=== PATIENT | female | born 1945 | race Caucasian/White ===

== ENCOUNTER 2018-10-10 15:28 | Emergency (ER) | payer MEDICARE ==
[2018-10-10 16:20] LABS: Urine Appearance Turbid; Urine Bacteria Absent (Absent); Urine Bilirubin Negative (Negative); Urine Blood 2+ (Negative); Urine Glucose Negative (Negative); Urine Ketones Negative (Negative); Urine Nitrite Negative (Negative); Urine Protein 2+(100 mg/dL) (Negative); Urine Specific Gravity 1.012 (1.010-1.030); Urine Urobilinogen Negative (Negative)
[2018-10-10 16:37] LABS: Urine Color Red
[2018-10-10 16:39] LABS: Urine Red Blood Cell 3+(>10/hpf) (Absent)
[2018-10-10 16:40] LABS: Urine Squamous Epithelial Cell Present (Absent); Urine White Blood Cell Trace(0-5/hpf) (Absent)
--- NOTE | 2018-10-10 17:03 | ED ---
GI/ HPI - HPI Summary HPI Summary: Patient is a 73-year-old female presenting to the ED with painless gross hematuria since last evening. She states she has been in the ED, symptoms have worsened. She is gone to the restroom for hematuria and frequency 5 times in the past hour and a half. She denies any pain, however is endorsing frequency. Denies any urgency. She states the blood is currently coming out in clots. Patient is a smoker. She denies any other symptoms. She denies history of UTIs. She denies any back pain, fevers, sweats, chills. Patient appears otherwise well on arrival. Vital signs are stable. - History of Current Complaint Chief Complaint: EDUrogenitalProblems Time Seen by Provider: 10/10/18 15:55 Stated Complaint: BLOOD IN URINE PER PT Hx Obtained From: Patient Onset/Duration: Started Hours Ago Timing: Constant Severity: Mild Current Severity: Mild Pain Intensity: 0 Associated Signs and Symptoms: Positive: Other: - Gross hematuria - Allergy/Home Medications Allergies/Adverse Reactions: Allergies Allergy/AdvReac Type Severity Reaction Status Date / Time No Known Allergies Allergy Verified 10/10/18 15:44 PMH/Surg Hx/FS Hx/Imm Hx Previously Healthy: Yes Endocrine/Hematology History: Denies: Hx Diabetes Cardiovascular History: Denies: Hx Congestive Heart Failure, Hx Hypertension History: Denies: Hx Renal Disease - Surgical History Surgery Procedure, Year, and Place: tonsils. foot surgery - Immunization History Date of Tetanus Vaccine: Unk Date of Influenza Vaccine: None Hx Pertussis Vaccination: No Immunizations Up to Date: Yes Infectious Disease History: No Infectious Disease History: Denies: Traveled Outside the [place] in Last 30 Days - Social History Occupation: Unemployed Lives: With Family Alcohol Use: Weekly Alcohol Amount: 2 beers 3x week Hx Substance Use: No Substance Use Type: Reports: None Hx Tobacco Use: Yes Smoking Status (MU): Heavy Every Day Tobacco Smoker Review of Systems Constitutional: Negative Negative: Fever, Chills, Skin Diaphoresis Negative: Palpitations, Chest Pain Negative: Shortness Of Breath, Cough Negative: Abdominal Pain, Vomiting, Diarrhea, Nausea Positive: frequency, hematuria Negative: Arthralgia, Myalgia Psychological: Normal All Other Systems Reviewed And Are Negative: Yes Physical Exam Triage Information Reviewed: Yes Vital Signs On Initial Exam: Initial Vitals Temp Pulse Resp BP Pulse Ox 97.0 F 84 18 176/89 99 10/10/18 15:36 10/10/18 15:36 10/10/18 15:36 10/10/18 15:36 10/10/18 15:36 Vital Signs Reviewed: Yes Appearance: Positive: Well-Appearing Skin: Positive: Warm, Skin Color Reflects Adequate Perfusion Head/Face: Positive: Normal Head/Face Inspection Eyes: Positive: EOMI, CYNTHIA, Conjunctiva Clear Neck: Positive: Supple, No Lymphadenopathy Respiratory/Lung Sounds: Positive: Clear to Auscultation, Breath Sounds Present Cardiovascular: Positive: RRR, Pulses are Symmetrical in both Upper and Lower Extremities Bowel Sounds: Positive: Present Musculoskeletal: Positive: Normal, Strength/ROM Intact Psychiatric: Positive: Affect/Mood Appropriate Diagnostics - Vital Signs Vital Signs Temp Pulse Resp BP Pulse Ox 10/10/18 15:36 97.0 F 84 18 176/89 99 - Laboratory Lab Results: Lab Results 10/10/18 Range/Units 16:07 Urine Color Red A Urine Appearance Turbid Urine pH 6.0 (5-9) Ur Specific [place] 1.012 (1.010-1.030) Urine Protein 2+(100 mg/dl) A (Negative) Urine Ketones Negative (Negative) Urine Blood 2+ A (Negative) Urine Nitrate Negative (Negative) Urine Bilirubin Negative (Negative) Urine Urobilinogen Negative (Negative) Ur Leukocyte Esterase Trace A (Negative) Urine WBC (Auto) Trace(0-5/hpf) (Absent) Urine RBC (Auto) 3+(>10/hpf) A (Absent) Ur Squamous Epith Cells Present A (Absent) Urine Bacteria Absent (Absent) Urine Glucose Negative (Negative) Result Diagrams: 10/10/18 17:28 10/10/18 17:28 Lab Statement: Any lab studies that have been ordered have been reviewed, and results considered in the medical decision making process. GIGU Course/Dx - Course Course Of Treatment: On arrival in the ED a UA was obtained which shows gross hematuria 3+ red blood cells with no evidence of a UTI. Patient is concerned for other pathology. She is requesting a CT scan at this time. She does have a history of uterine cancer several years ago which has been resected. She denies any fevers, sweats, chills. She endorses frequency but denies any urgency or pain. She denies any back pain. A CT abdomen/pelvis is obtained. This shows no acute findings or concerns. Patient will f/u with PCP and call for appt. She understands return precautions and I have given her return instructions if she develops any obstructive symptoms. As UA obtained only shows trace leukocytes, as patient is having some mild suprapubic tenderness and gross hematuria, she will be treated for a UTI at this time until she is able to follow-up for further evaluation to our urology team. - Diagnoses Differential Diagnoses - Female: Urinary Tract Infection, Other - cystitis, IC, renal or bladder lesions/tumors Provider Diagnoses: Hematuria Discharge - Sign-Out/Discharge Documenting (check all that apply): Patient Departure Patient Received Moderate/Deep Sedation with Procedure: No - Discharge Plan Condition: Stable Disposition: HOME Prescriptions: Phenazopyridine 200 mg (NF) [Pyridium 200 MG tab *] 200 mg PO TID PRN #6 tab PRN Reason: Pain Sulfamethox/Trimethoprim DS* [Bactrim DS 800/160 TAB*] 1 tab PO BID #10 tab MDD 2 Patient Education Materials: Hematuria (ED) Referrals: Paul Art MD [Primary Care Provider] - Mitch Phillips MD [Medical Doctor] - Additional Instructions: Please follow up with Dr. Phillips Bactrim twice daily x 5 days Please follow up with PCP If you develop any worsening symptoms/clots, please return to the ED - Billing Disposition and Condition Condition: STABLE Disposition: Home
[2018-10-10 17:41] LABS: ABS Basophils 0.1 10^3/ul (0-0.2); ABS Eosinophils 0 10^3/ul (0-0.6); ABS Lymphocytes 1.4 10^3/ul (1.0-4.8); ABS Monocytes 0.6 10^3/ul (0-0.8); ABS Neutrophils 11.6 10^3/ul (1.5-7.7); ABS Nucleated RBC 0 10^3/ul; Eosinophil % 0.2 %; Hematocrit 42 % (33-41); Hemoglobin 13.8 g/dL (12.0-16.0); Lymphocyte % 10.4 %; Mean Corpuscular HGB Conc 33 g/dL (31-36); Mean Corpuscular Hemoglobin 28 pg (27-31); Mean Corpuscular Volume 87 fL (80-97); Nucleated Red Blood Cells % 0; Platelet Count 233 10^3/uL (150-450); Red Blood Count 4.84 10^6 /uL (3.70-4.87); Red Cell Distribution Width 13 % (10.5-15); White Blood Count 13.7 10^3/uL (3.5-10.8)
[2018-10-10 17:47] LABS: INR 0.98 (0.82-1.09)
[2018-10-10 17:52] LABS: Albumin 4.4 g/dL (3.2-5.2); Albumin/Globulin Ratio 1.8 (1-3); BUN/Creatinine Ratio 14.9 (8-20); C Reactive Protein 1.31 mg/L (<8.01); Calcium 9.4 mg/dL (8.6-10.3); EGFR African American 104.7 (>60); EGFR Non-African American 86.5 (>60); Globulin 2.4 g/dL (2-4); Potassium 3.7 mmol/L (3.5-5.0); Total Bilirubin 0.5 mg/dL (0.2-1.0); Total Protein 6.8 g/dL (6.4-8.9)
[2018-10-10 17:58] VITALS: BP 173/97
== END 2018-10-10 17:57 | disposition home or self-care (01) ==
LOC: ED 15:28
DX: R31.9 Hematuria, unspecified (principal); K43.9 Ventral hernia without obstruction or gangrene; F17.210 Nicotine dependence, cigarettes, uncomplicated
CPT/HCPCS: 36415; 74176; 80053; 81003; 81015; 83605; 83690; 85025; 85610; 86140; 87077; 87086; 87186; 99282

== ENCOUNTER 2024-02-27 15:55 | Observation (INO) ==
[2024-02-27 19:10] LABS: ABS Basophils 0.1 10^3/uL (0.0-0.1); ABS Lymphocytes 1.2 10^3/uL (1.0-4.8); ABS Monocytes 0.8 10^3/uL (0.0-0.9); ABS Neutrophils 7.3 10^3/uL (1.5-7.6); Eosinophil % 0.4 %; Hemoglobin 12.8 g/dL (11.5-14.3); Lymphocyte % 12.3 %; Mean Corpuscular Hemoglobin 28.9 pg (27-33); Mean Corpuscular Hgb Conc 34.5 g/dL (31-36); Mean Corpuscular Volume 83.9 fL (80-97); Mean Platelet Volume 8.6 fL (7.5-11.2); Platelet Count 307 10^3/uL (150-450); Red Blood Count 4.41 10^6/uL (3.63-4.92); Red Cell Distribution Width 13.6 % (12-17); White Blood Count 9.4 10^3/uL (3.8-11.8)
[2024-02-27] MEDS: Lactated Ringers 1000 ml BAG 1,000 ML IV ONE (19:11)
[2024-02-27] MEDS: Cefepime 1 GM in Dextrose 1 GM/50 ML BAG IV ONE (19:11)
[2024-02-27] MEDS: Ondansetron 4 mg VIAL 2 MG/ML 2 ml VIAL IV ONE (19:11)
[2024-02-27] MEDS: Acetaminophen IV 1 GM/100ML 1,000 MG/100 ML BAG IV ONE (19:15)
[2024-02-27 19:24] LABS: INR 1.14 (0.85-1.14)
[2024-02-27 19:51] LABS: Albumin 3.7 g/dL (3.2-5.2); Albumin/Globulin Ratio 1.5 (1-3); C Reactive Protein 24.1 mg/L (<8.01); Calcium 9.7 mg/dL (8.6-10.3); Creatinine, Serum 0.87 mg/dL (0.51-0.95); Globulin 2.4 g/dL (2-4); Potassium 4.4 mmol/L (3.5-5.0); Total Bilirubin 0.6 mg/dL (0.2-1.0); Total Protein 6.1 g/dL (6.4-8.9); eGFR CKD-EPI 68.6 (>60)
[2024-02-27 20:33] LABS: Urine Appearance Clear; Urine Bilirubin Negative (Negative); Urine Blood 1+ (Negative); Urine Color Light-Yellow; Urine Glucose Negative (Negative); Urine Ketones 2+ (Negative); Urine Nitrite Negative (Negative); Urine Protein Negative (Negative); Urine Specific Gravity 1.012 (1.002-1.030); Urine Urobilinogen 1+ (Negative)
[2024-02-27 20:36] LABS: Urine Bacteria Absent /HPF (Absent); Urine Red Blood Cell 2+(6-10/hpf) /HPF (0-Trace); Urine Squamous Epithelial Cell Present /HPF (Absent); Urine White Blood Cell Trace(0-5/hpf) /HPF (0-Trace)
[2024-02-27] MEDS: Iohexol 300 (CONTRAST) 10 ML SDV IV ONE (20:40)
[2024-02-27] MEDS: Metoclopramide 5 MG/ML VIAL (10 mg) IV ONE (22:13)
[2024-02-28] MEDS: Enoxaparin 40 MG/0.4 ML SYR SUBCUT SCH (00:49)
[2024-02-28] MEDS ORDERED: Ondansetron ODT 4 mg TAB 4 MG TAB PO PRN (01:00)
[2024-02-28] MEDS ORDERED: Morphine 2 MG/ML SYRINGE IV PRN (01:05)
[2024-02-28] MEDS: Lactated Ringers 1000 ml BAG 1,000 ML IV ONE (02:08)
[2024-02-28 05:21] LABS: ABS Eosinophils 0.1 10^3/uL (0.0-0.5); ABS Lymphocytes 1.1 10^3/uL (1.0-4.8); ABS Monocytes 0.8 10^3/uL (0.0-0.9); ABS Neutrophils 6.2 10^3/uL (1.5-7.6); Hematocrit 33.3 % (35-45); Hemoglobin 11.3 g/dL (11.5-14.3); Lymphocyte % 13.8 %; Mean Corpuscular Hemoglobin 28.5 pg (27-33); Mean Corpuscular Hgb Conc 34.1 g/dL (31-36); Mean Corpuscular Volume 83.5 fL (80-97); Mean Platelet Volume 8.8 fL (7.5-11.2); Platelet Count 247 10^3/uL (150-450); Red Blood Count 3.99 10^6/uL (3.63-4.92); Red Cell Distribution Width 13.5 % (12-17); White Blood Count 8.3 10^3/uL (3.8-11.8)
[2024-02-28 06:05] LABS: Calcium 8.6 mg/dL (8.6-10.3); Creatinine, Serum 0.97 mg/dL (0.51-0.95); Magnesium 1.8 mg/dL (1.9-2.7); Phosphorus 3.2 mg/dL (2.5-5.0); Potassium 3.7 mmol/L (3.5-5.0); eGFR CKD-EPI 60.2 (>60)
[2024-02-28] MEDS: Magnesium Sulfate 2 gm BAG 2 GM/50 ML BAG IVPB ONE (07:44)
[2024-02-28] MEDS: Polyethylene Glycol 3350 17 GM PACKET PO SCH (07:46)
[2024-02-28] MEDS: Glycerin ADULT 2.4 gm SUPP PR ONE (11:51)
[2024-02-29] MEDS: fentaNYL 100 mcg/2 ml 50 MCG/ML VIAL ONE (15:10)
[2024-02-29] MEDS: Iohexol 300 (CONTRAST) 10 ML SDV IV ONE (18:37)
[2024-02-29] MEDS: Senna TAB 8.6 mg TAB PO PRN (21:13)
[2024-03-01] MEDS: Hemorrhoidal OINT 1 TUBE PR PRN (10:41)
[2024-03-01] MEDS: fentaNYL 100 mcg/2 ml 50 MCG/ML VIAL ONE (14:03)
[2024-03-01 14:06] VITALS: BP 136/75
[2024-03-02 13:26] LABS: Cancer Ag (CA 125), S 272 U/mL (<46)
[2024-03-02 13:48] LABS: CA 19-9 13 U/mL (<35)
== END 2024-03-01 17:41 | disposition home or self-care (01) ==
LOC: EDHOLD 15:55 → ED 15:55 → SUATTDRO 23:45 → EDHOLD 02-28 15:51 → MEDTELE 02-28 16:33
PROVIDERS: ADMIT Internal Medicine; ATTEND Student in an Organized Health Care Education/Training Program

== ENCOUNTER 2024-03-05 15:33 | Observation (INO) ==
[2024-03-05 18:31] LABS: ABS Neutrophils 8.1 10^3/uL (1.5-7.6); Eosinophil % 0.2 %; Hemoglobin 12.3 g/dL (11.5-14.3); Lymphocyte % 9.7 %; Mean Corpuscular Hemoglobin 28.4 pg (27-33); Mean Corpuscular Volume 83.5 fL (80-97); Mean Platelet Volume 8.7 fL (7.5-11.2); Platelet Count 318 10^3/uL (150-450); Red Blood Count 4.31 10^6/uL (3.63-4.92); Red Cell Distribution Width 13.9 % (12-17); White Blood Count 10.1 10^3/uL (3.8-11.8)
[2024-03-05] MEDS: Ondansetron 4 mg VIAL 2 MG/ML 2 ml VIAL IV ONE (19:06)
[2024-03-05] MEDS: NS 0.9% 1000 ml BAG 1,000 ML IV ONE (19:06)
[2024-03-05] MEDS: Acetaminophen IV 1 GM/100ML 1,000 MG/100 ML BAG IV ONE (19:06)
[2024-03-05 19:15] LABS: Albumin 3.5 g/dL (3.2-5.2); Albumin/Globulin Ratio 1.5 (1-3); C Reactive Protein 31.32 mg/L (<8.01); Calcium 9.1 mg/dL (8.6-10.3); Creatinine, Serum 0.77 mg/dL (0.51-0.95); Globulin 2.4 g/dL (2-4); Magnesium 1.9 mg/dL (1.9-2.7); Potassium 4.1 mmol/L (3.5-5.0); Total Bilirubin 0.7 mg/dL (0.2-1.0); Total Protein 5.9 g/dL (6.4-8.9); eGFR CKD-EPI 79.4 (>60)
[2024-03-05] MEDS: Morphine 4 MG/ML VIAL (1 ml) IV ONE (20:12)
[2024-03-05] MEDS: Iohexol 350 (CONTRAST) 500 ML MDV IV ONE (21:12)
[2024-03-05 21:57] LABS: Urine Appearance Clear; Urine Bilirubin Negative (Negative); Urine Blood 1+ (Negative); Urine Color Yellow; Urine Glucose Negative (Negative); Urine Ketones 2+ (Negative); Urine Nitrite Negative (Negative); Urine Protein Negative (Negative); Urine Specific Gravity 1.019 (1.002-1.030); Urine Urobilinogen 1+ (Negative); Urine pH 6.5 (5.0-8.0)
[2024-03-05 22:03] LABS: Urine Bacteria Absent /HPF (Absent); Urine Red Blood Cell 3+(>10/hpf) /HPF (0-Trace); Urine Squamous Epithelial Cell Present /HPF (Absent); Urine White Blood Cell 1+(6-10/hpf) /HPF (0-Trace)
[2024-03-06] MEDS: Morphine 4 MG/ML VIAL (1 ml) IV ONE ×2 (00:27→01:45)
[2024-03-06] MEDS ORDERED: Morphine 2 MG/ML SYRINGE IV PRN (02:09)
[2024-03-06] MEDS: Lactated Ringers 1000 ml BAG 1,000 ML IV SCH (03:03)
[2024-03-06] MEDS: Enoxaparin 40 MG/0.4 ML SYR SUBCUT SCH (06:05)
[2024-03-06] MEDS ORDERED: Senna TAB 8.6 mg TAB PO PRN (06:41)
[2024-03-06] MEDS ORDERED: Polyethylene Glycol 3350 17 GM PACKET PO PRN (06:41)
[2024-03-06 08:44] LABS: ABS Eosinophils 0.1 10^3/uL (0.0-0.5); ABS Lymphocytes 0.9 10^3/uL (1.0-4.8); ABS Monocytes 1.3 10^3/uL (0.0-0.9); ABS Neutrophils 10.1 10^3/uL (1.5-7.6); Eosinophil % 0.4 %; Hematocrit 34.5 % (35-45); Hemoglobin 11.6 g/dL (11.5-14.3); Lymphocyte % 7.6 %; Mean Corpuscular Hgb Conc 33.4 g/dL (31-36); Mean Corpuscular Volume 83.8 fL (80-97); Mean Platelet Volume 8.7 fL (7.5-11.2); Platelet Count 319 10^3/uL (150-450); Red Blood Count 4.12 10^6/uL (3.63-4.92); Red Cell Distribution Width 13.9 % (12-17); White Blood Count 12.4 10^3/uL (3.8-11.8)
[2024-03-06 10:37] LABS: Albumin 3.3 g/dL (3.2-5.2); Albumin/Globulin Ratio 1.6 (1-3); Calcium 8.6 mg/dL (8.6-10.3); Creatinine, Serum 0.85 mg/dL (0.51-0.95); Globulin 2.1 g/dL (2-4); Magnesium 1.9 mg/dL (1.9-2.7); Total Bilirubin 0.7 mg/dL (0.2-1.0); Total Protein 5.4 g/dL (6.4-8.9); eGFR CKD-EPI 70.5 (>60)
[2024-03-06 10:55] LABS: Phosphorus 3.3 mg/dL (2.5-5.0)
[2024-03-06] MEDS: Enoxaparin 60 MG/0.6 ML SYR SUBCUT SCH (20:22)
[2024-03-07 05:58] LABS: ABS Eosinophils 0.1 10^3/uL (0.0-0.5); ABS Lymphocytes 1.5 10^3/uL (1.0-4.8); ABS Monocytes 1.4 10^3/uL (0.0-0.9); ABS Neutrophils 9.6 10^3/uL (1.5-7.6); ABS Nucleated RBC 0.01 10^3/ul; Eosinophil % 0.4 %; Hematocrit 34.4 % (35-45); Hemoglobin 11.2 g/dL (11.5-14.3); Lymphocyte % 11.8 %; Mean Corpuscular Hemoglobin 27.7 pg (27-33); Mean Corpuscular Hgb Conc 32.7 g/dL (31-36); Mean Corpuscular Volume 84.9 fL (80-97); Mean Platelet Volume 8.8 fL (7.5-11.2); Platelet Count 378 10^3/uL (150-450); Red Blood Count 4.06 10^6/uL (3.63-4.92); Red Cell Distribution Width 14.2 % (12-17); White Blood Count 12.5 10^3/uL (3.8-11.8)
[2024-03-07] MEDS: Ondansetron 4 mg VIAL 2 MG/ML 2 ml VIAL IV PRN (07:28)
[2024-03-07 07:42] LABS: Calcium 8.8 mg/dL (8.6-10.3); Creatinine, Serum 0.98 mg/dL (0.51-0.95); Phosphorus 3.1 mg/dL (2.5-5.0); eGFR CKD-EPI 59.4 (>60)
[2024-03-07] MEDS ORDERED: fentaNYL 100 mcg/2 ml 50 MCG/ML VIAL ONE (14:55)
[2024-03-07] MEDS ORDERED: Midazolam 5 mg/5 ml VIAL 1 mg/ml 5 ml VIAL (5 mg) ONE (14:56)
[2024-03-07] MEDS: Lactated Ringers 1000 ml BAG 1,000 ML IV ONE (15:09)
[2024-03-08 07:40] VITALS: BP 99/55
== END 2024-03-08 08:50 | disposition short-term general hospital (02) ==
LOC: EDHOLD 15:33 → ED 15:33 → SUATTDRO 03-06 02:06 → MEDTELE 03-06 04:05
PROVIDERS: ADMIT Internal Medicine; ATTEND Internal Medicine

== ENCOUNTER 2024-03-20 15:31 | Inpatient (IN) ==
[2024-03-20] MEDS: Prochlorperazine 5 mg/ml 2 ml VIAL (10 mg) IV ONE (16:49)
[2024-03-20] MEDS: Lactated Ringers 1000 ml BAG 1,000 ML IV ONE ×2 (16:53→22:08)
[2024-03-20] MEDS: Ondansetron 4 mg VIAL 2 MG/ML 2 ml VIAL IV ONE ×2 (16:54→22:08)
[2024-03-20 17:12] LABS: ABS Lymphocytes 0.6 10^3/uL (1.0-4.8); ABS Monocytes 0.5 10^3/uL (0.0-0.9); ABS Neutrophils 7.7 10^3/uL (1.5-7.6); Eosinophil % 0.2 %; Hematocrit 25.2 % (35-45); Hemoglobin 8.2 g/dL (11.5-14.3); Lymphocyte % 6.7 %; Mean Corpuscular Hemoglobin 28.1 pg (27-33); Mean Corpuscular Hgb Conc 32.5 g/dL (31-36); Mean Corpuscular Volume 86.4 fL (80-97); Mean Platelet Volume 7.5 fL (7.5-11.2); Platelet Count 522 10^3/uL (150-450); Red Blood Count 2.92 10^6/uL (3.63-4.92); White Blood Count 8.9 10^3/uL (3.8-11.8)
[2024-03-20 17:44] LABS: Albumin 3.1 g/dL (3.2-5.2); Albumin/Globulin Ratio 1.3 (1-3); C Reactive Protein 21.99 mg/L (<8.01); Calcium 8.5 mg/dL (8.6-10.3); Creatinine, Serum 0.93 mg/dL (0.51-0.95); Globulin 2.4 g/dL (2-4); Magnesium 2.1 mg/dL (1.9-2.7); Potassium 4.2 mmol/L (3.5-5.0); Total Bilirubin 0.4 mg/dL (0.2-1.0); Total Protein 5.5 g/dL (6.4-8.9); eGFR CKD-EPI 63.3 (>60)
[2024-03-20] MEDS: Iohexol 350 (CONTRAST) 500 ML MDV IV ONE (18:07)
[2024-03-20 18:28] LABS: Urine Appearance Clear; Urine Bilirubin Negative (Negative); Urine Blood Negative (Negative); Urine Color Light-Yellow; Urine Glucose Negative (Negative); Urine Ketones 1+ (Negative); Urine Nitrite Negative (Negative); Urine Protein Negative (Negative); Urine Specific Gravity 1.007 (1.002-1.030); Urine Urobilinogen Negative (Negative); Urine pH 6.5 (5.0-8.0)
[2024-03-20 18:33] LABS: Urine Bacteria Absent /HPF (Absent); Urine Red Blood Cell Trace(0-2/hpf) /HPF (0-Trace); Urine Squamous Epithelial Cell Present /HPF (Absent); Urine White Blood Cell Trace(0-5/hpf) /HPF (0-Trace)
[2024-03-21] MEDS ORDERED: Magnesium Hydroxide LIQ 30 ML UDC PO PRN (01:42)
[2024-03-21] MEDS: Polyethylene Glycol 3350 BTL 238 GM BTL PO ONE (02:13)
[2024-03-21] MEDS: Lactated Ringers 1000 ml BAG 1,000 ML IV ONE (03:28)
[2024-03-21] MEDS: Enoxaparin 40 MG/0.4 ML SYR SUBCUT SCH (05:05)
[2024-03-21] MEDS: Acetaminophen IV 1 GM/100ML 1,000 MG/100 ML BAG IV PRN (05:06)
[2024-03-21] MEDS: Magnesium Hydroxide LIQ 30 ML UDC PO SCH (07:29)
[2024-03-21] MEDS: Senna TAB 8.6 mg TAB PO SCH (07:29)
[2024-03-21 08:00] LABS: Anion Gap 12 mmol/L (2-16); Blood Urea Nitrogen 10 mg/dL (6-24); CO2 Carbon Dioxide 24 mmol/L (22-32); Calcium 7.7 mg/dL (8.6-10.3); Chloride 100 mmol/L (101-111); Creatinine, Serum 0.83 mg/dL (0.51-0.95); Glucose 75 mg/dL (70-100); Magnesium 1.9 mg/dL (1.9-2.7); Sodium 136 mmol/L (135-145); eGFR CKD-EPI 72.6 (>60)
[2024-03-21 08:19] LABS: ABS Basophils 0.1 10^3/uL (0.0-0.1); ABS Eosinophils 0.1 10^3/uL (0.0-0.5); ABS Lymphocytes 0.9 10^3/uL (1.0-4.8); ABS Monocytes 0.8 10^3/uL (0.0-0.9); ABS Neutrophils 7.1 10^3/uL (1.5-7.6); Eosinophil % 0.6 %; Hematocrit 21.3 % (35-45); Hemoglobin 6.8 g/dL (11.5-14.3); Lymphocyte % 10.5 %; Mean Corpuscular Hemoglobin 28.2 pg (27-33); Mean Corpuscular Hgb Conc 32.2 g/dL (31-36); Mean Corpuscular Volume 87.6 fL (80-97); Mean Platelet Volume 7.6 fL (7.5-11.2); Platelet Count 406 10^3/uL (150-450); Red Blood Count 2.43 10^6/uL (3.63-4.92); Red Cell Distribution Width 17.9 % (12-17)
[2024-03-21 08:37] LABS: Potassium, Whole Blood 3.8 mmol/L (3.4-4.5)
[2024-03-21] MEDS: Ondansetron 4 mg VIAL 2 MG/ML 2 ml VIAL IV PRN (13:12)
[2024-03-21] MEDS: Metoclopramide 5 MG/ML VIAL (10 mg) IV PRN (18:46)
[2024-03-21 20:56] LABS: Hematocrit 26.9 % (35-45); Hemoglobin 9.2 g/dL (11.5-14.3)
[2024-03-22 06:24] LABS: ABS Basophils 0.1 10^3/uL (0.0-0.1); ABS Lymphocytes 0.9 10^3/uL (1.0-4.8); ABS Monocytes 0.8 10^3/uL (0.0-0.9); ABS Neutrophils 7.9 10^3/uL (1.5-7.6); Eosinophil % 0.4 %; Hematocrit 27.4 % (35-45); Hemoglobin 9.1 g/dL (11.5-14.3); Lymphocyte % 9.4 %; Mean Corpuscular Hgb Conc 33.1 g/dL (31-36); Mean Corpuscular Volume 84.6 fL (80-97); Mean Platelet Volume 7.7 fL (7.5-11.2); Platelet Count 369 10^3/uL (150-450); Red Blood Count 3.24 10^6/uL (3.63-4.92); Red Cell Distribution Width 16.8 % (12-17); White Blood Count 9.7 10^3/uL (3.8-11.8)
[2024-03-22 06:37] LABS: Calcium 7.7 mg/dL (8.6-10.3); Creatinine, Serum 0.79 mg/dL (0.51-0.95); Phosphorus 3.1 mg/dL (2.5-5.0); Potassium 3.9 mmol/L (3.5-5.0)
[2024-03-22 09:12] LABS: Ferritin 296.1 ng/mL (11-307)
[2024-03-23 06:07] LABS: ABS Basophils 0.1 10^3/uL (0.0-0.1); ABS Eosinophils 0.1 10^3/uL (0.0-0.5); ABS Lymphocytes 0.8 10^3/uL (1.0-4.8); ABS Monocytes 0.8 10^3/uL (0.0-0.9); ABS Neutrophils 6.6 10^3/uL (1.5-7.6); Eosinophil % 0.7 %; Hematocrit 28.1 % (35-45); Hemoglobin 9.2 g/dL (11.5-14.3); Mean Corpuscular Hgb Conc 32.9 g/dL (31-36); Mean Corpuscular Volume 85.2 fL (80-97); Mean Platelet Volume 7.7 fL (7.5-11.2); Platelet Count 353 10^3/uL (150-450); Red Blood Count 3.29 10^6/uL (3.63-4.92); Red Cell Distribution Width 17.1 % (12-17); White Blood Count 8.4 10^3/uL (3.8-11.8)
[2024-03-23 06:15] LABS: Albumin 2.5 g/dL (3.2-5.2); Albumin/Globulin Ratio 1.3 (1-3); Calcium 7.9 mg/dL (8.6-10.3); Creatinine, Serum 0.77 mg/dL (0.51-0.95); Magnesium 2.2 mg/dL (1.9-2.7); Total Bilirubin 0.6 mg/dL (0.2-1.0); Total Protein 4.5 g/dL (6.4-8.9); eGFR CKD-EPI 79.4 (>60)
[2024-03-23] MEDS: Polyethylene Glycol 3350 17 GM PACKET PO SCH (14:13)
[2024-03-23] MEDS: Polyethylene Glycol 3350 17 GM PACKET PO ONE (19:29)
[2024-03-23] MEDS ORDERED: Polyethylene Glycol 3350 17 GM PACKET PO PRN (23:00)
[2024-03-24 05:49] LABS: ABS Eosinophils 0.1 10^3/uL (0.0-0.5); ABS Lymphocytes 0.7 10^3/uL (1.0-4.8); ABS Monocytes 0.9 10^3/uL (0.0-0.9); ABS Neutrophils 6.4 10^3/uL (1.5-7.6); ABS Nucleated RBC 0.01 10^3/ul; Eosinophil % 0.8 %; Hematocrit 29.7 % (35-45); Hemoglobin 9.6 g/dL (11.5-14.3); Lymphocyte % 8.7 %; Mean Corpuscular Hemoglobin 27.9 pg (27-33); Mean Corpuscular Hgb Conc 32.5 g/dL (31-36); Mean Corpuscular Volume 85.9 fL (80-97); Mean Platelet Volume 7.9 fL (7.5-11.2); Nucleated Red Blood Cells % 0.1 %/100WBC (0.0-0.8); Platelet Count 335 10^3/uL (150-450); Red Blood Count 3.46 10^6/uL (3.63-4.92); Red Cell Distribution Width 17.1 % (12-17); White Blood Count 8.1 10^3/uL (3.8-11.8)
[2024-03-24 06:07] LABS: Albumin 2.5 g/dL (3.2-5.2); Albumin/Globulin Ratio 1.2 (1-3); Calcium 7.8 mg/dL (8.6-10.3); Creatinine, Serum 0.72 mg/dL (0.51-0.95); Globulin 2.1 g/dL (2-4); Magnesium 2.6 mg/dL (1.9-2.7); Potassium 3.9 mmol/L (3.5-5.0); Total Bilirubin 0.5 mg/dL (0.2-1.0); Total Protein 4.6 g/dL (6.4-8.9); eGFR CKD-EPI 86.1 (>60)
[2024-03-24 10:21] LABS: ABS Lymphocytes 0.9 10^3/uL (1.0-4.8); ABS Monocytes 0.8 10^3/uL (0.0-0.9); ABS Neutrophils 6.6 10^3/uL (1.5-7.6); Eosinophil % 0.3 %; Hematocrit 30.2 % (35-45); Lymphocyte % 10.2 %; Mean Corpuscular Hemoglobin 28.6 pg (27-33); Mean Corpuscular Hgb Conc 33.1 g/dL (31-36); Mean Corpuscular Volume 86.4 fL (80-97); Mean Platelet Volume 7.8 fL (7.5-11.2); Platelet Count 311 10^3/uL (150-450); Red Cell Distribution Width 17.1 % (12-17); White Blood Count 8.4 10^3/uL (3.8-11.8)
[2024-03-24] MEDS: Pantoprazole VIAL 40 MG VIAL IV SCH (11:01)
[2024-03-24 16:16] LABS: ABS Lymphocytes 0.7 10^3/uL (1.0-4.8); ABS Monocytes 0.8 10^3/uL (0.0-0.9); ABS Neutrophils 6.2 10^3/uL (1.5-7.6); Eosinophil % 0.3 %; Hematocrit 28.6 % (35-45); Hemoglobin 9.4 g/dL (11.5-14.3); Lymphocyte % 8.8 %; Mean Corpuscular Hemoglobin 28.3 pg (27-33); Mean Corpuscular Hgb Conc 32.7 g/dL (31-36); Mean Corpuscular Volume 86.4 fL (80-97); Mean Platelet Volume 7.8 fL (7.5-11.2); Platelet Count 301 10^3/uL (150-450); Red Blood Count 3.31 10^6/uL (3.63-4.92); Red Cell Distribution Width 17.3 % (12-17); White Blood Count 7.7 10^3/uL (3.8-11.8)
[2024-03-25 05:52] LABS: ABS Monocytes 0.8 10^3/uL (0.0-0.9); ABS Neutrophils 8.4 10^3/uL (1.5-7.6); Eosinophil % 0.3 %; Hematocrit 29.2 % (35-45); Hemoglobin 9.6 g/dL (11.5-14.3); Lymphocyte % 9.3 %; Mean Corpuscular Hemoglobin 28.1 pg (27-33); Mean Corpuscular Hgb Conc 32.7 g/dL (31-36); Mean Corpuscular Volume 85.8 fL (80-97); Mean Platelet Volume 8.2 fL (7.5-11.2); Platelet Count 314 10^3/uL (150-450); Red Cell Distribution Width 16.9 % (12-17); White Blood Count 10.3 10^3/uL (3.8-11.8)
[2024-03-25 06:03] LABS: Albumin 2.4 g/dL (3.2-5.2); Albumin/Globulin Ratio 1.3 (1-3); Calcium 7.6 mg/dL (8.6-10.3); Creatinine, Serum 0.73 mg/dL (0.51-0.95); Globulin 1.9 g/dL (2-4); Magnesium 2.5 mg/dL (1.9-2.7); Potassium 4.1 mmol/L (3.5-5.0); Total Bilirubin 0.5 mg/dL (0.2-1.0); Total Protein 4.3 g/dL (6.4-8.9); eGFR CKD-EPI 84.6 (>60)
[2024-03-25 09:41] VITALS: BP 127/82
== END 2024-03-25 15:08 | disposition home or self-care (01) | DRG 374 ==
LOC: ED 15:31 → EDHOLD 15:31 → SUATTDRO 22:38 → MEDTELE 03-21 14:20
PROVIDERS: ADMIT Student in an Organized Health Care Education/Training Program; ATTEND Internal Medicine